=== PATIENT | female | born 1975 | race Caucasian/White ===

== ENCOUNTER 2018-08-13 13:39 | Emergency (ER) | payer OTHER ==
[~2018-08-13] VITALS: Ht 149.9 cm; Wt 70.5 kg
[2018-08-13 13:56] VITALS: BP 116/64
--- NOTE | 2018-08-13 13:57 | NUR ---
PT AMBULATES TO BED 2
--- NOTE | 2018-08-13 14:01 | NUR ---
Patient being evaluated by physician at bedside.
[2018-08-13] MEDS ORDERED: ONDANSETRON 4 MG/2 ML VIAL IVP ONE (14:05)
[2018-08-13] MEDS ORDERED: KETOROLAC 30 MG/ML VIAL IVP ONE (14:05)
[2018-08-13] MEDS ORDERED: MORPHINE SULFATE 4 MG/ML SYR IVP ONE (14:05)
--- NOTE | 2018-08-13 14:11 | NUR ---
FIRST CONTACT;PATIENT PRESENTS TO ED WITH C/O FARLEY X 5 DAYS FEELS NAUSEOUS BUT DENIES VOMITING. DENIES BLURRY OF VISSION ; AAOX4 WITH EVEN AND STEADY GAIT; NEEDS ATTENDED; VSS; PATIENT POSITIONED FOR COMFORT; HOB ELEVATED; BEDRAILS UP X2; BED DOWN. ER MD MADE AWARE OF PT STATUS.
[2018-08-13 14:25] LABS: BASOPHILS % (AUTO) 0.4 % (0.0-2.0); EOSINOPHILS # (AUTO) 0.1 K/uL (0-0.4); EOSINOPHILS % (AUTO) 1.8 % (0.0-4.0); HEMATOCRIT 39.1 % (36-48); HEMOGLOBIN 12.9 g/dL (12.0-16.0); LYMPHOCYTES # (AUTO) 1.5 K/uL (2.5-16.5); LYMPHOCYTES % (AUTO) 19.5 % (20.5-51.1); MEAN CORPUSCULAR HEMOGLOBIN 28 pg (27-31); MEAN CORPUSCULAR HGB CONC 33 g/dL (33-37); MEAN CORPUSCULAR VOLUME 84.3 fL (80-94); MONOCYTES # (AUTO) 0.4 K/uL (0.8-1.0); NEUTROPHILS # (AUTO) 5.7 K/uL (1.8-7.7); NEUTROPHILS % (AUTO) 73.3 % (42.2-75.2); PLATELET COUNT (AUTO) 222 K/uL (140-450); RED BLOOD CELL COUNT(AUTO) 4.64 MIL/uL (4.20-5.40); RED CELL DISTRIBUTION WIDTH 14.4 % (11.6-13.7); WHITE BLOOD COUNT (AUTO) 7.8 K/uL (4.8-10.8)
[2018-08-13] MEDS ORDERED: MORPHINE SULFATE 4 MG/ML SYR ONE (14:25)
[2018-08-13] MEDS ORDERED: KETOROLAC 30 MG/ML VIAL ONE (14:26)
[2018-08-13] MEDS ORDERED: ONDANSETRON 4 MG/2 ML VIAL ONE (14:27)
[2018-08-13 14:30] LABS: APPEARANCE,URINE CLEAR (CLEAR); BILIRUBIN,URINE NEGATIVE (NEGATIVE); BLOOD, URINE 1+ (NEGATIVE); COLOR,URINE YELLOW (YELLOW); LEUKOCYTE ESTERASE ,URINE NEGATIVE (NEGATIVE); NITRITE, URINE NEGATIVE (NEGATIVE); UGLUCOSE NEGATIVE (NEGATIVE)
[2018-08-13 14:34] LABS: ANION GAP 8.9 (8-16); CARBON DIOXIDE 30.7 mmol/L (21-32); CREATININE 0.7 mg/dL (0.6-1.3); POTASSIUM 3.6 mmol/L (3.5-5.1)
[2018-08-13 14:39] LABS: PROTHROMBIN TIME 9.8 secs (10.8-13.4)
[2018-08-13 15:01] LABS: RBC,URINE 3-10 (FEW) /HPF (0-5); WBC,URINE 0-5 (RARE) /HPF (0-5)
[2018-08-13 15:08] LABS: TOTAL BILIRUBIN 0.3 mg/dL (0.0-1.0)
[2018-08-13 15:18] LABS: ALBUMIN 3.9 g/dL (3.4-5.0); BILIRUBIN,DIRECT 0.1 mg/dL (0.0-0.3)
[2018-08-13 15:31] VITALS: BP 110/59
== END 2018-08-13 15:31 | disposition home or self-care (01) ==
LOC: MED 13:39
DX: R07.9 Chest pain, unspecified (principal); R51 Headache; Z90.49 Acquired absence of other specified parts of digestive tract
CPT/HCPCS: 36415; 70450; 71045; 80048; 80076; 81001; 81025; 83690; 84484; 85025; 85610; 85730; 93005; 96374; 96375; 99285; J1885; J2270; J2405; Q0092

== ENCOUNTER 2024-08-17 10:14 | Emergency (ER) | payer OTHER ==
[~2024-08-17] VITALS: Ht 149.9 cm; Wt 77.1 kg
[2024-08-17 10:29] VITALS: BP 122/61; PULSE 76; RESP 18; TEMP 98.8; O2SAT 97
[2024-08-17 10:36] VITALS: O2SAT 97
[2024-08-17] MEDS: KETOROLAC 30 MG/ML VIAL IM ONE (10:53)
[2024-08-17] MEDS ORDERED: BACI-418 TP (11:59)
[2024-08-17] MEDS ORDERED: ACET500T99 PO (11:59)
[2024-08-17] MEDS ORDERED: LID5T TP (11:59)
[2024-08-17] MEDS ORDERED: NAPR-337 PO (11:59)
[2024-08-17] MEDS: BACITRACIN OINT 500 UNITS/GM PKT TP ONE (12:08)
== END 2024-08-17 12:16 | disposition home or self-care (01) ==
LOC: MED 10:14
DX: S80.02XA Contusion of left knee, initial encounter (principal); S50.02XA Contusion of left elbow, initial encounter; M25.552 Pain in left hip; M25.512 Pain in left shoulder; Z79.899 Other long term (current) drug therapy; W18.09XA Striking against other object with subsequent fall, initial encounter; Y93.89 Activity, other specified; Y92.218 Other school as the place of occurrence of the external cause; Y99.8 Other external cause status
CPT/HCPCS: 73080; 73110; 73502; 73562; 81025; 96372; 99284; J1885

== ENCOUNTER 2024-08-25 19:21 | Emergency (ER) | payer SELFPAY ==
[~2024-08-25] VITALS: Ht 149.9 cm; Wt 76.7 kg
[~2024-08-25 19:21] MED LIST: ACET500T99 PO; BACI-418 TP; LID5T TP; NAPR-337 PO
[2024-08-25 20:04] VITALS: BP 111/46; PULSE 58; RESP 16; TEMP 98.4; O2SAT 100
[2024-08-25] MEDS ORDERED: CEPH-588 PO (21:47)
== END 2024-08-25 22:10 | disposition home or self-care (01) ==
LOC: MED 19:21
DX: L03.116 Cellulitis of left lower limb (principal); Z79.899 Other long term (current) drug therapy
CPT/HCPCS: 99283